=== PATIENT | female | born 1965 | race Caucasian/White ===

== ENCOUNTER 2018-03-05 10:59 | Emergency (ER) | payer OTHER ==
[~2018-03-05] VITALS: Ht 152.4 cm; Wt 74.8 kg
[2018-03-05 11:03] VITALS: Ht 152.4 cm; Wt 74.8 kg
[2018-03-05 14:11] VITALS: BP 146/88
== END 2018-03-05 14:11 | disposition home or self-care (01) ==
LOC: ED 10:59
DX: I10 Essential (primary) hypertension (principal); E78.00 Pure hypercholesterolemia, unspecified
CPT/HCPCS: J0360; J3490